=== PATIENT | female | born 1960 | race African-American/Black ===

== ENCOUNTER 2018-06-18 14:57 | Outpatient (CLI) | payer MEDICAID ==
--- NOTE | 2018-06-18 15:37 | RAD ---
LEFT SHOULDER FOUR VIEWS: History: Shoulder pain. FINDINGS: Moderate osteoarthritic changes of the AC joint and glenohumeral joint spaces. No signs of fracture o r dislocation. IMPRESSION: Moderate osteoarthritic changes of the shoulder. POS: RICHARH
== END 2018-06-18 14:58 | disposition home or self-care (01) ==
LOC: NAV RAD 14:57
PROVIDERS: ATTEND Internal Medicine
DX: M25.512 Pain in left shoulder (principal); M19.012 Primary osteoarthritis, left shoulder

== ENCOUNTER 2018-10-01 09:37 | Emergency (ER) | payer MEDICAID, OTHER ==
[2018-10-01] MEDS ORDERED: Ketorolac Tromethamine 30 MG/ML VIAL ONE (10:01)
[2018-10-01] MEDS ORDERED: Oxymetazoline HCl 0.05% ( 15 ML ) ONE (10:01)
--- NOTE | 2018-10-01 10:22 | RAD ---
Chest AP view INDICATION: Cough, congestion, fever, headache and bodyaches and Friday COMPARISON: None FINDINGS: Lungs:The lungs are clear Cardiac silhouette pulmonary vasculature:There is mild cardiomegaly. Pulmonary vasculature appears wi thin normal limits. Pleural spaces:No pleural effusion or pneumothorax is demonstrated. Upper abdomen:No abnormality seen. Osseous structures: No acute osseous abnormality. There is a radiopaque density overlying the midline lower neck base which may be external to the gerardo ent. IMPRESSION: Mild cardiomegaly without evidence of cardiac decompensation. No airspace consolidation t o suggest presence of pneumonia. Radiopaque density overlying the neck base may be external to the patient.
[2018-10-01 10:59] LABS: #Basophils 0.2 thou/uL (0.0-0.2); #Eosinphils 0.2 thou/uL (0.0-0.7); #Lymphocytes 2.4 thou/uL (1.20-3.40); #Monocytes 1.2 thou/uL (0.11-0.59); #Neutrophils 7.1 thou/uL (1.40-6.50); %Basophils 1.6 % (0.0-1.0); %Eosinophils 1.9 % (0.0-10.0); %Monocytes 10.6 % (0.0-10.0); %Neutrophils 63.9 % (42.0-75.0); Hemoglobin 11.5 g/dL (12.0-16.0); Mean Corpuscular HGB CONC 30.7 g/dL (32.0-36.0); Mean Corpuscular Hemoglobin 24.1 pg (27.0-31.0); Mean Corpuscular Volume 78.7 fL (78.0-98.0); Mean Platelet Volume 8.1 fL (7.4-10.4); Platelet Count 254 thou/uL (130-400); RBC Distribution Width 12.4 % (11.5-14.5); Red Blood Cell (RBC) Count 4.76 mill/uL (4.20-5.40); White Blood Cell (WBC) Count 11.1 thou/uL (4.8-10.8)
[2018-10-01 11:09] LABS: ALT (SGPT) 23 U/L (8-55); AST (SGOT) 26 U/L (5-34); Albumin 4.4 g/dL (3.5-5.0); Alkaline Phosphatase 87 U/L (40-150); Anion Gap 20 mmol/L (10-20); BUN (Urea Nitrogen) 14 mg/dL (9.8-20.1); Bilirubin, Total 1.2 mg/dL (0.2-1.2); Calc. Creatinine Clearance 0 mL/min (70-130); Calcium 10.2 mg/dL (7.8-10.44); Carbon Dioxide 22 mmol/L (22-29); Chloride 103 mmol/L (98-107); Estimated GFR-MDRD 53; Globulin 3.8 g/dL (2.4-3.5); Glucose 134 mg/dL (70-105); Potassium 3.6 mmol/L (3.5-5.1); Protein, Total 8.2 g/dL (6.0-8.3); Sodium 141 mmol/L (136-145)
[2018-10-01] MEDS ORDERED: Benzonatate 100 MG CAP ONE (12:12)
== END 2018-10-01 13:03 | disposition home or self-care (01) ==
LOC: NAV ERS 09:37
DX: J18.9 Pneumonia, unspecified organism (principal); I10 Essential (primary) hypertension; Z79.899 Other long term (current) drug therapy
CPT/HCPCS: 71045; 80053; 83605; 85025; 87804; 96361; 96374; J1885

== ENCOUNTER 2019-12-06 13:15 | Outpatient (CLI) | payer OTHER ==
--- NOTE | 2019-12-06 15:45 | RAD ---
EXAM: 3 views of the left shoulder HISTORY: Shoulder pain COMPARISON: 06/18/2018 FINDINGS: There is no evidence of acute fracture or dislocation. No degenerative changes are present. No soft tissue swelling is seen. The visualized thorax is unremarkable. IMPRESSION: No evidence of acute osseous abnormality.
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
== END 2019-12-06 13:16 | disposition home or self-care (01) ==
LOC: NAV RAD 13:15
PROVIDERS: ATTEND Family Medicine
DX: M25.512 Pain in left shoulder (principal); M47.812 Spondylosis without myelopathy or radiculopathy, cervical region
CPT/HCPCS: 72040

== ENCOUNTER 2020-02-09 22:58 | Emergency (ER) | payer OTHER ==
[2020-02-09 23:43] LABS: Anion Gap 16 mmol/L (10-20); BUN (Urea Nitrogen) 22 mg/dL (9.8-20.1); Calc. Creatinine Clearance 0 mL/min (70-130); Calcium 9.7 mg/dL (7.8-10.44); Carbon Dioxide 24 mmol/L (22-29); Chloride 104 mmol/L (98-107); Estimated GFR-MDRD 65; Glucose 126 mg/dL (70-105); Potassium 3.9 mmol/L (3.5-5.1); Sodium 140 mmol/L (136-145)
[2020-02-10] MEDS ORDERED: Ketorolac Tromethamine 60 MG/2 ML VIAL ONE (00:12)
[2020-02-10] MEDS ORDERED: Dexamethasone 20 MG/5 ML VIAL ONE (00:12)
== END 2020-02-10 00:30 | disposition home or self-care (01) ==
LOC: NAV ERS 22:58
DX: M54.41 Lumbago with sciatica, right side (principal); I10 Essential (primary) hypertension; E11.9 Type 2 diabetes mellitus without complications; Z79.899 Other long term (current) drug therapy
CPT/HCPCS: 36415; 80048; 93005; 96372; J1100; J1885

== ENCOUNTER 2023-05-23 20:13 | Emergency (ER) | payer OTHER ==
[2023-05-23] MEDS ORDERED: Acetaminophen 500 MG TAB ONE (20:49)
== END 2023-05-23 20:55 | disposition home or self-care (01) ==
LOC: NAV ERS 20:13
DX: S00.93XA Contusion of unspecified part of head, initial encounter (principal); S10.93XA Contusion of unspecified part of neck, initial encounter; E11.9 Type 2 diabetes mellitus without complications; I10 Essential (primary) hypertension; Y04.8XXA Assault by other bodily force, initial encounter; Z79.84 Long term (current) use of oral hypoglycemic drugs; Z79.899 Other long term (current) drug therapy
CPT/HCPCS: 99283